=== PATIENT | female | born 1980 | race Caucasian/White ===

== ENCOUNTER 2018-01-14 14:12 | Emergency (ER) | payer SELFPAY ==
--- NOTE | 2018-01-14 15:14 | EDM.PDOC ---
<Carri Lara - Last Filed: 01/14/18 15:06> ED HPI GENERAL MEDICAL PROBLEM - General Chief Complaint: Upper Extremity Injury/Pain Stated Complaint: RIGHT ARM PAIN-SENT BY [facility] Time Seen by Provider: 01/14/18 15:20 - History of Present Illness INITIAL COMMENTS - FREE TEXT/NARRATIVE: Patient is a 37 year old female sent from the clinic today for right arm pain. The pain has been present for about a week and she describes the pain as shooting from her shoulder into the dorsum of her hand with associated numbness and tingling. She rates the arm pain She also complains of a headache that occured suddenly this morning, and she noticed a non-painful lump on the right side of her neck. She became dizzy and lightheaded with the headache onset. She denies previous arm pain episodes or injuries. She denies arm swelling or redness, fever, chills, N/V. She took Aleve about an hour ago for the headache with minor relief. Right Arm Pain Score (Numeric/FACES): 6 - Related Data Allergies Allergy/AdvReac Type Severity Reaction Status Date / Time No Known Allergies Allergy Verified 01/14/18 14:26 Home Meds: Home Meds Prednisone [IJD: predniSONE] 40 mg PO WITHBREAKFAST #10 tab 01/14/18 [Rx] oxyCODONE HCl/Acetaminophen [Percocet 5-325 mg Tablet] 1 each PO Q4HR PRN #12 tablet 01/14/18 [Rx] Social & Family History - Tobacco Use Smoking Status *Q: Never Smoker Second Hand Smoke Exposure: No - Caffeine Use Caffeine Use: Reports: Coffee - Recreational Drug Use Recreational Drug Use: No Review of Systems - Review of Systems Constitutional: Reports: No Symptoms Eyes: Reports: No Symptoms Ears: Reports: No Symptoms Nose: Reports: No Symptoms Mouth/Throat: Reports: No Symptoms Respiratory: Reports: No Symptoms Cardiovascular: Reports: No Symptoms GI/Abdominal: Reports: No Symptoms Genitourinary: Reports: No Symptoms Musculoskeletal: Reports: Neck Pain, Arm Pain, Other (headache) Skin: Reports: No Symptoms Neurological: Reports: No Symptoms, Numbness, Tingling Psychiatric: Reports: No Symptoms ED EXAM, GENERAL - Physical Exam Exam Limited By: No Limitations General Appearance: Alert, No Apparent Distress Ears: Normal External Exam Nose: Normal Inspection Throat/Mouth: Normal Inspection Head: Atraumatic Neck: Supple, Non-Tender, Full Range of Motion Respiratory/Chest: No Respiratory Distress Cardiovascular: Normal Peripheral Pulses, Regular Rate, Rhythm, No Murmur GI/Abdominal: Normal Bowel Sounds, Soft, Non-Tender, No Organomegaly, No Distention Extremities: Normal Inspection, Normal Range of Motion, Normal Capillary Refill , Arm Pain Neurological: Alert, Oriented, No Motor/Sensory Deficits Psychiatric: Normal Affect, Normal Mood Skin Exam: Warm, Dry, Intact, Normal Color, No Rash Lymphatic: No Adenopathy Course - Vital Signs Last Recorded V/S: Last Vital Signs Temp 36.3 C 01/14/18 14:23 Pulse 95 01/14/18 14:23 Resp 18 01/14/18 14:23 BP 141/98 H 01/14/18 14:23 Pulse Ox 100 01/14/18 14:23 - Orders/Labs/Meds Labs: Laboratory Tests 01/14/18 01/14/18 01/14/18 Range/Units 15:56 15:56 15:56 WBC 7.86 (3.98-10.04) K/mm3 RBC 4.79 (3.98-5.22) M/mm3 Hgb 13.5 (11.2-15.7) gm/L Hct 40.8 (34.1-44.9) % MCV 85.2 (79.4-94.8) fl MCH 28.2 (25.6-32.2) pg MCHC 33.1 (32.2-35.5) g/dl RDW Std Deviation 47.0 H (36.4-46.3) fL Plt Count 368 (182-369) K/mm3 MPV 9.8 (9.4-12.3) fl Neut % (Auto) 57.2 (34.0-71.1) % Lymph % (Auto) 30.7 (19.3-51.7) % [place] % (Auto) 10.1 (4.7-12.5) % Eos % (Auto) 1.4 (0.7-5.8) Baso % (Auto) 0.6 (0.1-1.2) % Neut # (Auto) 4.50 (1.56-6.13) K/mm3 Lymph # (Auto) 2.41 (1.18-3.74) K/mm3 [place] # (Auto) 0.79 H (0.24-0.36) K/mm3 Eos # (Auto) 0.11 (0.04-0.36) K/mm3 Baso # (Auto) 0.05 (0.01-0.08) K/mm3 Sodium 141 (136-145) mEq/L Potassium 3.6 (3.5-5.1) mEq/L Chloride 105 (98-107) mEq/L Carbon Dioxide 25 (21-32) mEq/L Anion Gap 14.6 (5-15) BUN 13 (7-18) mg/dL Creatinine 1.0 (0.55-1.02) mg/dL Est Cr Clr Drug Dosing 60.92 mL/min Estimated GFR (MDRD) > 60 (>60) mL/min BUN/Creatinine Ratio 13.0 L (14-18) Glucose 99 (74-106) mg/dL Calcium 9.0 (8.5-10.1) mg/dL Magnesium 2.1 (1.8-2.4) mg/dl Total Bilirubin 0.2 (0.2-1.0) mg/dL AST 14 L (15-37) U/L ALT 18 (14-59) U/L Alkaline Phosphatase 75 (46-116) U/L Creatine Kinase 48 (26-192) U/L Total Protein 7.5 (6.4-8.2) g/dl Albumin 3.9 (3.4-5.0) g/dl Globulin 3.6 gm/dL Albumin/Globulin Ratio 1.1 (1-2) Meds: Medications Discontinued Medications Generic Name Dose Route Start Last Admin Trade Name Freq PRN Reason Stop Dose Admin Acetaminophen 650 mg 01/14/18 15:38 01/14/18 16:10 Tylenol PO 01/14/18 15:39 650 mg NOW ONE Administration Ketorolac Tromethamine 60 mg 01/14/18 17:21 01/14/18 17:27 Toradol IM 01/14/18 17:22 60 mg ONETIME ONE Administration Departure - Departure Disposition: Home, Self-Care 01 Clinical Impression: Cervical radiculopathy - Discharge Information Prescriptions: oxyCODONE HCl/Acetaminophen [Percocet 5-325 mg Tablet] 1 each PO Q4HR PRN #12 tablet PRN Reason: Pain Prednisone [IJD: predniSONE] 40 mg PO WITHBREAKFAST #10 tab Instructions: Cervical Radiculopathy, [id number] Referrals: PCP,Nhung [Primary Care Provider] - Gianna Mas [Physician] - Forms: ED Department Discharge Additional Instructions: Recommend ice and heat for additional pain relief. Also recommend trying something like icy hot or BenGay. may also purchase topical lidocaine patches. These are available [id number]. Prednisone 2 tabs, 40 mg by mouth daily for 5 days. Tylenol or Motrin as needed for pain relief. For pain not relieved by Tylenol or Motrin you may take Percocet 1 tab every 4-[address] machinery within 12 hours of taking Percocet. Percocet can be habit-forming, recommend you take as few of these as needed to control your pain. Do not take more than 3200mg a Motrin or 4 g of Tylenol from all sources in 1 day. Follow-up with family medicine this week for recheck of your symptoms. may need to discuss taking MRI for further evaluation. Recommend Dr. Chu or Dr. Perez at the [facility]. Call [phone] schedule to schedule with one of these providers. Please return to the ER if your symptoms change or worsen. <Anel Taylor - Last Filed: 01/16/18 13:38> ED HPI GENERAL MEDICAL PROBLEM - General Source of Information: Reports: Patient History Limitations: Reports: No Limitations - History of Present Illness INITIAL COMMENTS - FREE TEXT/NARRATIVE: Patient was initially seen by MARKO Alejo. I agree with Her history of present illness. In addition to me she reports that she's not been any trauma recently. No motor vehicle accidents. She recently traveled from [place] to [place]. She reports to me that she has a headache and neck pain mostly on the posterior aspects greatest in the right side. She reports that the pain travels from her neck down into her arm. Reports the greatest pain in her distal upper arm and forearm. Review of Systems - Review of Systems Review Of Systems: See Below ED EXAM, GENERAL - Physical Exam Exam: See Below Exam Limited By: No Limitations General Appearance: Alert, WD/WN, Mild Distress Neck: Normal Inspection, Supple, Non-Tender, Full Range of Motion, Other (No tenderness to palpation of the cervical vertebrae. Minimal tenderness to the trapezius, mainly on the right, and the posterior neck muscle groups. Negative Spurling's test.) Respiratory/Chest: No Respiratory Distress, Lungs Clear, Normal Breath Sounds Cardiovascular: Normal Peripheral Pulses, Regular Rate, Rhythm, No Murmur Peripheral Pulses: 3+: Radial (L), Radial (R) Extremities: Limited Range of Motion (right shoulder due to pain) Course - Radiology Interpretation Free Text/Narrative:: CT cervical spine Technique: Multiple axial sections were obtained from above C1 inferiorly to the bottom of T1. Reconstructed sagittal and coronal images were reviewed. Comparison: No previous study. Findings: Mastoid sinuses and middle ear cavities are clear. Posterior skull base is intact. Vertebral body heights and disc spaces are maintained. No bony central or bony neural foraminal stenosis is seen. No fracture is seen. No abnormal subluxation is noted. Kyphosis is noted on the reconstructed sagittal images which is most likely positional. Impression: 1. Slight kyphosis on the sagittal views most likely representing positioning. 2. No additional abnormality is seen on CT study of the cervical spine. Right upper extremity venous ultrasound: Duplex and color flow imaging was obtained of the right upper extremity including the jugular, subclavian, axillary, brachial, basilic, cephalic, radial and ulnar veins. Normal compression is seen throughout these veins. Phasic flow and augmentation also present within the majority of veins. Left subclavian vein also showed augmentation. Impression: 1. No evidence of venous thrombosis within the right upper extremity or within the left subclavian vein. - Re-Assessments/Exams Free Text/Narrative Re-Assessment/Exam: 01/14/18 15:35 Patient was initially seen by Carri MARION. I agree with her history of present illness, review of systems and exam. Patient initially declined any pain medication. By the time I saw the patient, she decided she would like something for the pain. We'll get her Tylenol for pain. She declined anything stronger than that. Decision made to CT her neck to rule out a cervical radiculopathy. She was educated that this is not the best test for this and she may require an MRI later. 01/14/18 17:[address] and labs with the patient. She does seem like she is experiencing significantly more pain. She still declining narcotic pain medication. Decided that we will get her some Toradol IM. We'll obtain ultrasound to ensure she has not a blood clot and on. 01/14/18 19:47 Reviewed the ultrasound results with the patient. At this point is unclear infected what is causing her pain. I do feel that is very likely a cervical radiculopathy. Will have close follow-up and they can schedule an MRI outpatient. Discharge instructions as documented. Departure - Departure Time of Disposition: 19:42 Condition: Fair
[2018-01-14] MEDS ORDERED: Acetaminophen 325 MG Tab PO ONE (15:38)
--- NOTE | 2018-01-14 15:59 | CT ---
CT cervical spine Technique: Multiple axial sections were obtained from above C1 inferiorly to the bottom of T1. Reconstructed sagittal and coronal images were reviewed. Comparison: No previous study. Findings: Mastoid sinuses and middle ear cavities are clear. Posterior skull base is intact. Vertebral body heights and disc spaces are maintained. No bony central or bony neural foraminal stenosis is seen. No fracture is seen. No abnormal subluxation is noted. Kyphosis is noted on the reconstructed sagittal images which is most likely positional. Impression: 1. Slight kyphosis on the sagittal views most likely representing positioning. 2. No additional abnormality is seen on CT study of the cervical spine. Diagnostic code #2
[2018-01-14] MEDS ORDERED: Ketorolac 60 MG/2 ML SDV IM ONE (17:21)
--- NOTE | 2018-01-14 19:04 | US ---
Right upper extremity venous ultrasound: Duplex and color flow imaging was obtained of the right upper extremity including the jugular, subclavian, axillary, brachial, basilic, cephalic, radial and ulnar veins. Normal compression is seen throughout these veins. Phasic flow and augmentation also present within the majority of veins. Left subclavian vein also showed augmentation. Impression: 1. No evidence of venous thrombosis within the right upper extremity or within the left subclavian vein. Diagnostic code #1
== END 2018-01-14 20:04 | disposition home or self-care (01) ==
LOC: JD.ED 14:12
DX: M54.12 Radiculopathy, cervical region (principal)
CPT/HCPCS: 36415; 72125; 80053; 82550; 83735; 85025; 93971; 96372; 99284; A9270; J1885; 99283

== ENCOUNTER 2018-05-21 22:00 | Emergency (ER) | payer SELFPAY ==
[2018-05-21] MEDS ORDERED: Ondansetron 4 MG/2 ML SDV IVPUSH ONE (22:22)
[2018-05-21] MEDS ORDERED: Sodium Chloride 0.9% 10 ML Syringe FLUSH PRN (22:22)
[2018-05-21] MEDS ORDERED: Sodium Chloride 0.9% 1,000 ML IV STA (22:22)
--- NOTE | 2018-05-21 23:21 | EDM.PDOC ---
ED HPI GENERAL MEDICAL PROBLEM - General Chief Complaint: Abdominal Pain Stated Complaint: ABDOMINAL [PAIN Time Seen by Provider: 05/21/18 22:11 Source of Information: Reports: Patient History Limitations: Reports: No Limitations - History of Present Illness INITIAL COMMENTS - FREE TEXT/NARRATIVE: The patient presents with epigastric and RUQ abdominal pain since this weekend. The pain comes and goes. She also has some nausea and diarrhea at times. She says the pain comes after eating. She has no fever, chills, cough, chest pain, or dysuria. She still has her gallbladder and appendix. She does not think she is . Onset: Gradual Duration: Day(s): Location: Reports: Abdomen Quality: Reports: Sharp Severity: Moderate Improves with: Reports: None Worsens with: Reports: None Associated Symptoms: Reports: Nausea/Vomiting. Denies: Confusion, Chest Pain, Cough, Fever/Chills, Headaches, Shortness of Breath Upper Epigastric Pain Score (Numeric/FACES): 5 - Related Data Allergies Allergy/AdvReac Type Severity Reaction Status Date / Time No Known Allergies Allergy Verified 05/21/18 22:11 Home Meds: Home Meds Nitrofurantoin Monohyd/M-Cryst [Macrobid 100 mg Capsule] 100 mg PO BID #9 capsule 05/21/18 [Rx] Ondansetron [Zofran ODT] 4 mg PO Q6H PRN #20 tab.dis 05/21/18 [Rx] Past Medical History HEENT History: Reports: Impaired Vision Respiratory History: Reports: Other (See Below) Other Respiratory History: fungal pneumonia as a child Oncologic (Cancer) History: Reports: Leukemia Social & Family History - Family History Family Medical History: Noncontributory - Tobacco Use Smoking Status *Q: Never Smoker - Caffeine Use Caffeine Use: Reports: Coffee - Recreational Drug Use Recreational Drug Use: No ED ROS GENERAL - Review of Systems Review Of Systems: See Below Constitutional: Reports: No Symptoms HEENT: Reports: No Symptoms Respiratory: Reports: No Symptoms Cardiovascular: Reports: No Symptoms Endocrine: Reports: No Symptoms GI/Abdominal: Reports: Abdominal Pain, Nausea. Denies: Diarrhea : Reports: No Symptoms Musculoskeletal: Reports: No Symptoms Skin: Reports: No Symptoms ED EXAM, GI/ABD - Physical Exam Exam: See Below Exam Limited By: No Limitations General Appearance: Alert, No Apparent Distress Ears: Normal External Exam Nose: Normal Inspection Head: Atraumatic, Normocephalic Neck: Normal Inspection Respiratory/Chest: No Respiratory Distress, Lungs Clear, Normal Breath Sounds Cardiovascular: Regular Rate, Rhythm, No Edema, No Murmur GI/Abdominal Exam: Soft, No Organomegaly, No Mass, Tender (Mild to moderate pain to the RUQ) Back Exam: Normal Inspection Extremities: Normal Inspection Course - Vital Signs Last Recorded V/S: Last Vital Signs Temp 98.0 F 05/21/18 22:08 Pulse 95 05/21/18 22:08 Resp 20 05/21/18 22:08 BP 122/82 05/21/18 22:08 Pulse Ox 99 05/21/18 22:08 - Orders/Labs/Meds Orders: Active Orders 24 hr Category Date Time Status Peripheral IV Care [RC] . DIRECTED Care 05/21/18 22:22 Active Abdomen Ltd [US] Stat Exams 05/21/18 22:22 Taken UA W/MICROSCOPIC [URIN] Stat Lab 05/21/18 22:40 Ordered Nitrofurantoin [place]/Macrocryst [Macrobid] Med 05/21/18 23:32 Once 100 mg PO ONETIME ONE Sodium Chloride 0.9% [Saline Flush] Med 05/21/18 22:22 Active 10 ml FLUSH ASDIRECTED PRN ED Antiemetic Medication Reflex [OM.PC] Stat Oth 05/21/18 22:22 Ordered Peripheral IV Insertion Adult [OM.PC] Stat Oth 05/21/18 22:22 Ordered Medication Orders Sodium Chloride (Saline Flush) 10 ml FLUSH ASDIRECTED PRN PRN Reason: Keep Vein Open Last Admin: 05/21/18 22:36 Dose: 10 ml Labs: Laboratory Tests 05/21/18 05/21/18 05/21/18 Range/Units 22:30 22:30 22:30 WBC 8.16 (3.98-10.04) K/mm3 RBC 4.74 (3.98-5.22) M/mm3 Hgb 13.1 (11.2-15.7) gm/L Hct 40.4 (34.1-44.9) % MCV 85.2 (79.4-94.8) fl MCH 27.6 (25.6-32.2) pg MCHC 32.4 (32.2-35.5) g/dl RDW Std Deviation 44.7 (36.4-46.3) fL Plt Count 367 (182-369) K/mm3 MPV 9.7 (9.4-12.3) fl Neut % (Auto) 47.3 (34.0-71.1) % Lymph % (Auto) 38.0 (19.3-51.7) % [place] % (Auto) 11.5 (4.7-12.5) % Eos % (Auto) 2.5 (0.7-5.8) Baso % (Auto) 0.6 (0.1-1.2) % Neut # (Auto) 3.86 (1.56-6.13) K/mm3 Lymph # (Auto) 3.10 (1.18-3.74) K/mm3 [place] # (Auto) 0.94 H (0.24-0.36) K/mm3 Eos # (Auto) 0.20 (0.04-0.36) K/mm3 Baso # (Auto) 0.05 (0.01-0.08) K/mm3 Sodium 139 (136-145) mEq/L Potassium 4.0 (3.5-5.1) mEq/L Chloride 105 (98-107) mEq/L Carbon Dioxide 23 (21-32) mEq/L Anion Gap 15.0 (5-15) BUN 14 (7-18) mg/dL Creatinine 0.9 (0.55-1.02) mg/dL Est Cr Clr Drug Dosing 67.03 mL/min Estimated GFR (MDRD) > 60 (>60) mL/min BUN/Creatinine Ratio 15.6 (14-18) Glucose 113 H (74-106) mg/dL Calcium 8.8 (8.5-10.1) mg/dL Total Bilirubin 0.1 L (0.2-1.0) mg/dL AST 15 (15-37) U/L ALT 16 (14-59) U/L Alkaline Phosphatase 92 (46-116) U/L Total Protein 7.4 (6.4-8.2) g/dl Albumin 3.7 (3.4-5.0) g/dl Globulin 3.7 gm/dL Albumin/Globulin Ratio 1.0 (1-2) Lipase 120 (73-393) U/L HCG, Qual Negative (NEGATIVE) Urine Color (Yellow) Urine Appearance (Clear) Urine pH (5.0-8.0) Ur Specific [place] (1.005-1.030) Urine Protein (Negative) Urine Glucose (UA) (Negative) Urine Ketones (Negative) Urine Occult Blood (Negative) Urine Nitrite (Negative) Urine Bilirubin (Negative) Urine Urobilinogen (0.2-1.0) Ur Leukocyte Esterase (Negative) Urine RBC (0-5) /hpf Urine WBC (0-5) /hpf Ur Epithelial Cells (0-5) /hpf Urine Bacteria (FEW) /hpf Urine Mucus (FEW) /hpf 05/21/18 Range/Units 22:40 WBC (3.98-10.04) K/mm3 RBC (3.98-5.22) M/mm3 Hgb (11.2-15.7) gm/L Hct (34.1-44.9) % MCV (79.4-94.8) fl MCH (25.6-32.2) pg MCHC (32.2-35.5) g/dl RDW Std Deviation (36.4-46.3) fL Plt Count (182-369) K/mm3 MPV (9.4-12.3) fl Neut % (Auto) (34.0-71.1) % Lymph % (Auto) (19.3-51.7) % [place] % (Auto) (4.7-12.5) % Eos % (Auto) (0.7-5.8) Baso % (Auto) (0.1-1.2) % Neut # (Auto) (1.56-6.13) K/mm3 Lymph # (Auto) (1.18-3.74) K/mm3 [place] # (Auto) (0.24-0.36) K/mm3 Eos # (Auto) (0.04-0.36) K/mm3 Baso # (Auto) (0.01-0.08) K/mm3 Sodium (136-145) mEq/L Potassium (3.5-5.1) mEq/L Chloride (98-107) mEq/L Carbon Dioxide (21-32) mEq/L Anion Gap (5-15) BUN (7-18) mg/dL Creatinine (0.55-1.02) mg/dL Est Cr Clr Drug Dosing mL/min Estimated GFR (MDRD) (>60) mL/min BUN/Creatinine Ratio (14-18) Glucose (74-106) mg/dL Calcium (8.5-10.1) mg/dL Total Bilirubin (0.2-1.0) mg/dL AST (15-37) U/L ALT (14-59) U/L Alkaline Phosphatase (46-116) U/L Total Protein (6.4-8.2) g/dl Albumin (3.4-5.0) g/dl Globulin gm/dL Albumin/Globulin Ratio (1-2) Lipase (73-393) U/L HCG, Qual (NEGATIVE) Urine Color Yellow (Yellow) Urine Appearance Slt cloudy H (Clear) Urine pH 6.0 (5.0-8.0) Ur Specific [place] > or = 1.030 (1.005-1.030) Urine Protein Negative (Negative) Urine Glucose (UA) Negative (Negative) Urine Ketones Negative (Negative) Urine Occult Blood Negative (Negative) Urine Nitrite Negative (Negative) Urine Bilirubin Negative (Negative) Urine Urobilinogen 0.2 (0.2-1.0) Ur Leukocyte Esterase 1+ H (Negative) Urine RBC 0-5 (0-5) /hpf Urine WBC 10-20 H (0-5) /hpf Ur Epithelial Cells 0-5 (0-5) /hpf Urine Bacteria Few (FEW) /hpf Urine Mucus Not seen (FEW) /hpf Meds: Medications Generic Name Dose Route Start Last Admin Trade Name Freq PRN Reason Stop Dose Admin Sodium Chloride 10 ml 05/21/18 22:22 05/21/18 22:36 Saline Flush FLUSH 10 ml ASDIRECTED PRN Administration Keep Vein Open Discontinued Medications Generic Name Dose Route Start Last Admin Trade Name Freq PRN Reason Stop Dose Admin Sodium Chloride 1,000 mls @ 1,000 mls/hr 05/21/18 22:22 05/21/18 22:34 Normal Saline IV 05/21/18 23:21 1,000 mls/hr .BOLUS STA Administration Ondansetron HCl 4 mg 05/21/18 22:22 05/21/18 22:35 Zofran IVPUSH 05/21/18 22:23 4 mg ONETIME ONE Administration - Re-Assessments/Exams Free Text/Narrative Re-Assessment/Exam: 05/21/18 23:19 I ordered an IV NS 1L bolus, zofran 4mg IV, labs, UA and an US of her RUQ. Her CBC and CMP look good. Her HCG is negative. Her UA shows a UTI. The US shows a contracted gallbladder but no signs of stones or gallbladder wall thickening. I will need to treat her UTI and get her on some pepcid and have her follow up with her doctor for further testing as needed. Departure - Departure Time of Disposition: 23:35 Disposition: Home, Self-Care 01 Condition: Good Clinical Impression: Abdominal pain Qualifiers: Abdominal location: right upper quadrant Qualified Code(s): R10.11 - Right upper quadrant pain UTI (urinary tract infection) Qualifiers: Urinary tract infection type: site unspecified Hematuria presence: without hematuria Qualified Code(s): N39.0 - Urinary tract infection, site not specified - Discharge Information Prescriptions: Nitrofurantoin Monohyd/M-Cryst [Macrobid 100 mg Capsule] 100 mg PO BID #9 capsule Ondansetron [Zofran ODT] 4 mg PO Q6H PRN #20 tab.dis PRN Reason: Nausea\vomiting Referrals: PCP,None [Primary Care Provider] - Deb Chu MD [Physician] - 1 Week Forms: ED Department Discharge Additional Instructions: Take macrobid 2 times per day until gone. Take the zofran every 6 hours as needed for nausea and vomiting. Drink plenty of fluids. Take pepcid daily for 5 days. Avoid fried fatty foods. Follow up with Dr Chu within a week or one of her partners. Please return if you are worse. - My Orders Last 24 Hours: My Active Orders 05/21/18 22:22 Peripheral IV Care [RC] . DIRECTED Abdomen Ltd [US] Stat Sodium Chloride 0.9% [Saline Flush] 10 ml FLUSH ASDIRECTED PRN ED Antiemetic Medication Reflex [OM.PC] Stat Peripheral IV Insertion Adult [OM.PC] Stat 05/21/18 22:40 UA W/MICROSCOPIC [URIN] Stat 05/21/18 23:32 Nitrofurantoin [place]/Macrocryst [Macrobid] 100 mg PO ONETIME ONE - Assessment/Plan Last 24 Hours: My Active Orders 05/21/18 22:22 Peripheral IV Care [RC] . DIRECTED Abdomen Ltd [US] Stat Sodium Chloride 0.9% [Saline Flush] 10 ml FLUSH ASDIRECTED PRN ED Antiemetic Medication Reflex [OM.PC] Stat Peripheral IV Insertion Adult [OM.PC] Stat 05/21/18 22:40 UA W/MICROSCOPIC [URIN] Stat 05/21/18 23:32 Nitrofurantoin [place]/Macrocryst [Macrobid] 100 mg PO ONETIME ONE
[2018-05-21] MEDS ORDERED: Nitrofurantoin Monohydrate/Macrocrystalline 100 MG Cap PO ONE (23:32)
--- NOTE | 2018-05-22 06:23 | US ---
Limited abdominal ultrasound: Multiple real-time images of the upper right abdomen were obtained. Comparison: No prior abdominal imaging. Liver shows no focal parenchymal abnormality. Gallbladder not optimally distended but shows no shadowing gallstones or gallbladder wall thickening. No biliary duct dilatation is seen. Right kidney shows no hydronephrosis or mass. Right kidney has a length of 8.7 cm. Pancreas is incompletely seen. Visualized portions of the pancreas are within normal limits. Portal vein shows normal hepatopedal flow. Impression: 1. No abnormality is identified on right upper quadrant abdominal ultrasound. Diagnostic code #1 Agree with preliminary report issued by [facility] ([facility] preliminary report dictated on 05/13/1918, 12:40 AM Central Time)
== END 2018-05-21 23:50 | disposition home or self-care (01) ==
LOC: JD.ED 22:00
DX: N39.0 Urinary tract infection, site not specified (principal); R10.11 Right upper quadrant pain; Z79.899 Other long term (current) drug therapy
CPT/HCPCS: 36415; 76705; 80053; 81001; 83690; 84703; 85025; 96361; 96374; 99284; A9270; J2405; J7040; J7050

== ENCOUNTER 2020-04-26 17:48 | Emergency (ER) | payer SELFPAY ==
[2020-04-26] MEDS ORDERED: Sodium Chloride 0.9% 10 ML Syringe FLUSH PRN (18:57)
[2020-04-26] MEDS ORDERED: Sodium Chloride 0.9% 1,000 ML IV ONE (18:58)
--- NOTE | 2020-04-26 19:05 | EDM.PDOC ---
ED HPI GENERAL MEDICAL PROBLEM - General Chief Complaint: Neuro Symptoms/Deficits Stated Complaint: COLLAPSED Time Seen by Provider: 04/26/20 18:28 Source of Information: Reports: Patient, RN Notes Reviewed History Limitations: Reports: No Limitations - History of Present Illness INITIAL COMMENTS - FREE TEXT/NARRATIVE: Patient is a 39-year-old female who presents to the ED for evaluation of a couple syncopal episodes at work. Patient states she did go to the [facility] walk -in [facility] and was evaluated, and they thought likely it was vertigo or some sort of inner ear infection, but sent her here due to the possibility of it being a seizure or a stroke. Patient is exhibiting no strokelike symptoms, it is important to note. Patient's vital signs are also within normal limits. Patient states she did not have any loss of consciousness or hit her head. States that she has had previous incidents like this, roughly 8 to 10 years ago , and again 3 years ago. Patient told she had an interim your viral infection at those times, and treated accordingly. Patient states that she does feel dizzy, and does not characterize this is a world spinning dizziness, but states that the provider at the walk-in clinic did Vincent maneuvers, this seemed to worsen the dizziness. Patient also states that any sort of moving her eyes makes the dizziness worse, she states that she has to close her eyes sometimes to get her wits about her. She states regarding the collapse, she is aware of her surroundings, and cannot respond to anyone, and this is concerning to her. Patient states she has some mild nausea with this, no vomiting or any other sick -like symptoms, she has not had any sort of upper respiratory symptoms, and also she denies any chance of at today's visit. Of note patient's blood pressure in the room, at triage is 120/89, 112/86, then 97/79. - Related Data Allergies Allergy/AdvReac Type Severity Reaction Status Date / Time No Known Allergies Allergy Verified 04/26/20 18:08 Home Meds: Home Meds . [No Known Home Meds] 04/26/20 [History] Past Medical History HEENT History: Reports: Impaired Vision, Otitis Media Respiratory History: Reports: Other (See Below) Other Respiratory History: fungal pneumonia as a child Neurological History: Reports: Vertigo Oncologic (Cancer) History: Reports: Leukemia Social & Family History - Family History Family Medical History: Noncontributory - Tobacco Use Smoking Status *Q: Never Smoker Second Hand Smoke Exposure: Yes - Caffeine Use Caffeine Use: Reports: Coffee, Soda - Recreational Drug Use Recreational Drug Use: No ED ROS GENERAL - Review of Systems Review Of Systems: See Below Constitutional: Denies: Fever, Chills HEENT: Reports: Vertigo. Denies: Ear Pain, Sinus Problem, Vision Change Respiratory: Denies: Shortness of Breath, Cough Cardiovascular: Denies: Chest Pain GI/Abdominal: Reports: Nausea. Denies: Abdominal Pain, Constipation, Diarrhea, Vomiting Neurological: Reports: Dizziness, Syncope (episodes at home) ED EXAM, NEURO - Physical Exam Exam: See Below Exam Limited By: No Limitations General Appearance: Alert, WD/WN, No Apparent Distress Eye Exam: Right Eye: Nystagmus (3 tics to upper right EOM), Bilateral Eye: EOMI , Normal Inspection, PERRL Ears: Normal External Exam, Normal Canal, Hearing Grossly Normal, Normal TMs Nose: Normal Inspection Throat/Mouth: Normal Inspection, Normal Lips, Normal Teeth, Normal Gums, Normal Oropharynx, Normal Voice, No Airway Compromise Head Exam: Atraumatic, Normocephalic Neck: Normal Inspection Respiratory/Chest: No Respiratory Distress, Lungs Clear, Normal Breath Sounds, No Accessory Muscle Use, Chest Non-Tender Cardiovascular: Normal Peripheral Pulses, Regular Rate, Rhythm, No Murmur GI/Abdominal: Normal Bowel Sounds, Soft, Non-Tender, No Distention, No Mass Neurological: Alert, Normal Mood/Affect, Normal Dorsiflexion, CN II-XII Intact, Normal Plantar Flexion, Normal Gait, Normal Reflexes, No Motor/Sensory Deficits , Oriented x 3 Back Exam: Normal Inspection Extremities: Normal Inspection, Normal Capillary Refill Psychiatric: Normal Affect, Normal Mood Skin Exam: Warm, Dry, Intact, Normal Color, No Rash Course - Vital Signs Last Recorded V/S: Last Vital Signs Temp 98.6 F 04/26/20 18:03 Pulse 94 04/26/20 18:03 Resp 20 04/26/20 18:03 BP 120/89 04/26/20 18:03 Pulse Ox 100 04/26/20 18:03 - Orders/Labs/Meds Orders: Active Orders 24 hr Category Date Time Status Orthostatic Vital Signs [RC] ASDIRECTED Care 04/26/20 18:58 Ordered Peripheral IV Care [RC] . DIRECTED Care 04/26/20 18:58 Ordered COMPREHENSIVE METABOLIC PN,CMP [CHEM] Stat Lab 04/26/20 18:57 Ordered Sodium Chloride 0.9% [Saline Flush] Med 04/26/20 18:57 Active 10 ml FLUSH ASDIRECTED PRN Peripheral IV Insertion Adult [OM.PC] Stat Oth 04/26/20 18:57 Ordered Medication Orders Sodium Chloride (Saline Flush) 10 ml FLUSH ASDIRECTED PRN PRN Reason: Keep Vein Open Labs: Laboratory Tests 04/26/20 Range/Units 20:20 WBC 8.49 (3.98-10.04) K/mm3 RBC 4.85 (3.98-5.22) M/mm3 Hgb 13.5 (11.2-15.7) gm/dl Hct 41.6 (34.1-44.9) % MCV 85.8 (79.4-94.8) fl MCH 27.8 (25.6-32.2) pg MCHC 32.5 (32.2-35.5) g/dl RDW Std Deviation 46.4 H (36.4-46.3) fL Plt Count 396 H (182-369) K/mm3 MPV 9.6 (9.4-12.3) fl Neut % (Auto) 60.9 (34.0-71.1) % Lymph % (Auto) 27.0 (19.3-51.7) % [place] % (Auto) 10.1 (4.7-12.5) % Eos % (Auto) 1.3 (0.7-5.8) Baso % (Auto) 0.6 (0.1-1.2) % Neut # (Auto) 5.17 (1.56-6.13) K/mm3 Lymph # (Auto) 2.29 (1.18-3.74) K/mm3 [place] # (Auto) 0.86 H (0.24-0.36) K/mm3 Eos # (Auto) 0.11 (0.04-0.36) K/mm3 Baso # (Auto) 0.05 (0.01-0.08) K/mm3 Meds: Medications Generic Name Dose Route Start Last Admin Trade Name Freq PRN Reason Stop Dose Admin Sodium Chloride 10 ml 04/26/20 18:57 Saline Flush FLUSH ASDIRECTED PRN Keep Vein Open Discontinued Medications Generic Name Dose Route Start Last Admin Trade Name Prabhakar PRN Reason Stop Dose Admin Sodium Chloride 1,000 mls @ 999 mls/hr 04/26/20 18:58 04/26/20 19:46 Normal Saline IV 04/26/20 19:58 999 mls/hr ONETIME ONE Administration Meclizine HCl 25 mg 04/26/20 18:58 04/26/20 19:46 Antivert PO 04/26/20 18:59 25 mg ONETIME ONE Administration - Re-Assessments/Exams Free Text/Narrative Re-Assessment/Exam: 04/26/20 19:08 Patient presents to the ED for the evaluation of her collapsing episodes at work , history would suggest that this is vertigo in nature, due to the dizziness recounted by the patient. Patient is requesting that we do head CT to rule out any sort abnormalities, I have ordered this to rule out any sort abnormalities although I suspect it to be negative. Patient will also get baseline labs, IV fluids and meclizine to see if this does not help her dizziness. 04/26/20 19:[address] was done, and is negative for any acute abnormalities. 04/26/20 20:41 Patient was reassessed at bedside, and states she is feeling much better, and her dizziness has subsided substantially. She will likely be discharged home with general recommendations pending normal labs. Departure - Departure Time of Disposition: 20:42 Disposition: Home, Self-Care 01 Condition: Good Clinical Impression: BPPV (benign paroxysmal positional vertigo) Qualifiers: Laterality: unspecified laterality Qualified Code(s): H81.10 - Benign paroxysmal vertigo, unspecified ear - Discharge Information *PRESCRIPTION DRUG MONITORING PROGRAM REVIEWED*: No *COPY OF PRESCRIPTION DRUG MONITORING REPORT IN PATIENT ABISAI: No Instructions: Vertigo, [id number], How to Perform the Ivncent Maneuver Referrals: PCP,None [Primary Care Provider] - Forms: ED Department Discharge Additional Instructions: You were evaluated in the ER today for your recent collapse and syncopal episodes. History and physical examination suggest that you are suffering from benign positional paroxysmal vertigo, you did have a head CT performed, and there was no acute abnormalities noted on the head CT. You were given meclizine for the suspicion of vertigo, and this did seem to help relieve some of your symptoms, you were able to take some oral fluids, and this also seemed to help raise your blood pressure little bit to relieve your symptoms. Laboratory evaluation is within normal limits, there is no abnormalities that would suggest an etiology to your other symptoms. This is most likely due to an inner ear imbalance, as it has been previously. Highly recommend you follow-up with a chiropractor in the area that provides Vincent maneuvers for vertigo treatment. You may take meclizine, 25 mg every 6 hours as needed for feelings of vertigo. This is also commonly marketed as Antivert or Bonine, it is available over-the- counter and found by the Dramamine/Benadryl section in any retail or pharmacy. Please return to the ER at any time if symptoms should change or worsen. Sepsis Event Note - Evaluation Sepsis Screening Result: No Definite Risk - Focused Exam Vital Signs: Vital Signs Temp Pulse Resp BP Pulse Ox 04/26/20 18:03 98.6 F 94 20 120/89 100 Date Exam was Performed: 04/26/20 Time Exam was Performed: 20:42 - My Orders Last 24 Hours: My Active Orders 04/26/20 18:57 COMPREHENSIVE METABOLIC PN,CMP [CHEM] Stat Sodium Chloride 0.9% [Saline Flush] 10 ml FLUSH ASDIRECTED PRN Peripheral IV Insertion Adult [OM.PC] Stat 04/26/20 18:58 Orthostatic Vital Signs [RC] ASDIRECTED Peripheral IV Care [RC] . DIRECTED - Assessment/Plan Last 24 Hours: My Active Orders 04/26/20 18:57 COMPREHENSIVE METABOLIC PN,CMP [CHEM] Stat Sodium Chloride 0.9% [Saline Flush] 10 ml FLUSH ASDIRECTED PRN Peripheral IV Insertion Adult [OM.PC] Stat 04/26/20 18:58 Orthostatic Vital Signs [RC] ASDIRECTED Peripheral IV Care [RC] . DIRECTED
--- NOTE | 2020-04-26 19:32 | CT ---
Head CT Technique: Multiple axial sections through the brain were obtained. Intravenous contrast was not utilized. Comparison: No prior intracranial imaging is available. Findings: Ventricles along with basal cisterns and sulci over the convexities are within normal limits for the patient's age. No abnormal parenchymal densities are seen. No evidence of intracranial hemorrhage. No midline shift or mass-effect is seen. Bone window settings were reviewed. No acute calvarial finding is seen. Visualized paranasal sinuses and mastoid sinuses show nothing acute. Impression: 1. Nothing acute is appreciated on noncontrast head CT exam Diagnostic code #1 This report was dictated in MDT
== END 2020-04-26 21:08 | disposition home or self-care (01) ==
LOC: JD.ED 17:48
DX: H81.10 Benign paroxysmal vertigo, unspecified ear (principal)
CPT/HCPCS: 36415; 70450; 80053; 85025; 96360; 99284; A9270; J7030; 99283

== ENCOUNTER 2020-11-17 11:55 | Emergency (ER) | payer SELFPAY ==
--- NOTE | 2020-11-17 12:37 | EDM.PDOC ---
ED HPI GENERAL MEDICAL PROBLEM - General Chief Complaint: Skin Complaint Stated Complaint: R UNDER ARM SKIN COMPLAINT Time Seen by Provider: 11/17/20 12:10 Source of Information: Reports: Patient, RN Notes Reviewed History Limitations: Reports: No Limitations - History of Present Illness INITIAL COMMENTS - FREE TEXT/NARRATIVE: Patient is a 40 year old female presenting to the ER with c/o a painful, red, and swollen area in her right axilla. She states that a number of months ago, she knicked the area while shaving. Since then she has had a small, raised area. Over the last few days, the area has grown in size, reddened, and became painful. She denies fever or chills, but states that she has felt "queezy" today. She has had no vomiting. Right Axillary Pain Score (Numeric/FACES): 3 - Related Data Allergies Allergy/AdvReac Type Severity Reaction Status Date / Time No Known Allergies Allergy Verified 04/26/20 18:08 Home Meds: Home Meds Doxycycline [Vibramycin] 100 mg PO BID 10 Days #20 tab 11/17/20 [Rx] Past Medical History HEENT History: Reports: Impaired Vision, Otitis Media Respiratory History: Reports: Other (See Below) Other Respiratory History: fungal pneumonia as a child Neurological History: Reports: Vertigo Oncologic (Cancer) History: Reports: Leukemia Social & Family History - Family History Family Medical History: No Pertinent Family History - Tobacco Use Tobacco Use Status *Q: Never Tobacco User Second Hand Smoke Exposure: No - Caffeine Use Caffeine Use: Reports: Coffee - Recreational Drug Use Recreational Drug Use: No ED ROS GENERAL - Review of Systems Review Of Systems: See Below Constitutional: Reports: No Symptoms. Denies: Fever, Chills, Weakness HEENT: Reports: No Symptoms Respiratory: Reports: No Symptoms Cardiovascular: Reports: No Symptoms Endocrine: Reports: No Symptoms GI/Abdominal: Reports: Nausea. Denies: Abdominal Pain, Diarrhea, Vomiting : Reports: No Symptoms Musculoskeletal: Reports: No Symptoms Skin: Reports: Other (painful, reddened area of swelling to right axilla.) Neurological: Reports: No Symptoms Psychiatric: Reports: No Symptoms Hematologic/Lymphatic: Reports: No Symptoms Immunologic: Reports: No Symptoms ED EXAM, SKIN/RASH Exam: See Below General Appearance: Alert, WD/WN, No Apparent Distress Respiratory/Chest: No Respiratory Distress, Lungs Clear, Normal Breath Sounds, No Accessory Muscle Use, Chest Non-Tender Cardiovascular: Normal Peripheral Pulses, Regular Rate, Rhythm, No Edema, No Gallop, No JVD, No Murmur, No Rub GI/Abdominal: Normal Bowel Sounds, Soft, Non-Tender, No Organomegaly, No Distention, No Abnormal Bruit, No Mass Neurological: Alert, Oriented, CN II-XII Intact, Normal Cognition, Normal Gait, Normal Reflexes, No Motor/Sensory Deficits Psychiatric: Normal Affect Skin: Other (1.5 cm raised, firm, reddened area of induration to right axilla.) Lymphatic: No Adenopathy Course - Vital Signs Last Recorded V/S: Last Vital Signs Temp 98.5 F 11/17/20 12:13 Pulse 91 11/17/20 12:13 Resp 16 11/17/20 12:13 BP 132/72 11/17/20 12:13 Pulse Ox 97 11/17/20 12:13 - Orders/Labs/Meds Labs: Laboratory Tests 11/17/20 11/17/20 Range/Units 12:34 12:34 WBC 9.23 (3.98-10.04) K/mm3 RBC 4.82 (3.98-5.22) M/mm3 Hgb 13.5 (11.2-15.7) gm/dl Hct 41.8 (34.1-44.9) % MCV 86.7 (79.4-94.8) fl MCH 28.0 (25.6-32.2) pg MCHC 32.3 (32.2-35.5) g/dl RDW Std Deviation 45.1 (36.4-46.3) fL Plt Count 409 H (182-369) K/mm3 MPV 9.5 (9.4-12.3) fl Neut % (Auto) 71.2 H (34.0-71.1) % Lymph % (Auto) 18.6 L (19.3-51.7) % [place] % (Auto) 9.0 (4.7-12.5) % Eos % (Auto) 0.8 (0.7-5.8) Baso % (Auto) 0.3 (0.1-1.2) % Neut # (Auto) 6.57 H (1.56-6.13) K/mm3 Lymph # (Auto) 1.72 (1.18-3.74) K/mm3 [place] # (Auto) 0.83 H (0.24-0.36) K/mm3 Eos # (Auto) 0.07 (0.04-0.36) K/mm3 Baso # (Auto) 0.03 (0.01-0.08) K/mm3 Sodium 139 (136-145) mEq/L Potassium 4.5 (3.5-5.1) mEq/L Chloride 105 (98-107) mEq/L Carbon Dioxide 25 (21-32) mEq/L Anion Gap 13.5 (5-15) BUN 12 (7-18) mg/dL Creatinine 1.0 (0.55-1.02) mg/dL Est Cr Clr Drug Dosing 59.15 mL/min Estimated GFR (MDRD) > 60 (>60) mL/min BUN/Creatinine Ratio 12.0 L (14-18) Glucose 94 (74-106) mg/dL Calcium 8.9 (8.5-10.1) mg/dL Total Bilirubin 0.4 (0.2-1.0) mg/dL AST 16 (15-37) U/L ALT 16 (14-59) U/L Alkaline Phosphatase 79 (46-116) U/L C-Reactive Protein 1.4 H* (<1.0) mg/dL Total Protein 7.5 (6.4-8.2) g/dl Albumin 3.7 (3.4-5.0) g/dl Globulin 3.8 gm/dL Albumin/Globulin Ratio 1.0 (1-2) Meds: Medications Discontinued Medications Generic Name Dose Route Start Last Admin Trade Name Freq PRN Reason Stop Dose Admin Ceftriaxone Sodium 1 gm/ 0 gm 11/17/20 13:36 Lidocaine HCl 2.1 ml IM 11/17/20 13:37 ONETIME ONE - Re-Assessments/Exams Free Text/Narrative Re-Assessment/Exam: Patient is a 40-year-old female presenting with to the emergency part with complaints of a red, swollen, painful area in her right axilla. On exam, there is a 1.5 cm firm nodule which is reddened and tender. Area is not fluctuant and is quite small, so I&D would not be beneficial at this point. Have ordered CBC, CMP, CRP. 12/25/20 13:35 Hematology was grossly unremarkable with the exception of the CRP minimally elevated at 1.4. We will give the patient an IM injection of Rocephin 1 g and sent a prescription for doxycycline. Discussed return precautions discharge instructions as documented. Departure - Departure Time of Disposition: 13:44 Disposition: Home, Self-Care 01 Condition: Good Clinical Impression: Axillary abscess - Discharge Information *PRESCRIPTION DRUG MONITORING PROGRAM REVIEWED*: No *COPY OF PRESCRIPTION DRUG MONITORING REPORT IN PATIENT ABISAI: No Prescriptions: Doxycycline [Vibramycin] 100 mg PO BID 10 Days #20 tab Instructions: Skin Abscess Referrals: PCP,None [Primary Care Provider] - Forms: ED Department Discharge Additional Instructions: You were seen in the emergency department today for an area of redness, pain, and swelling to your right axilla. Blood work was done and found to be normal. As we discussed, this is likely the early stages of an abscess within your axilla. While in the ER, you received an injection of Rocephin which is an an tibiotic. A prescription for doxycycline has been sent to [facility]. Take this medication as prescribed. If you should experience any new or worsening symptoms or develop fever chills, recommend return to the emergency department. Sepsis Event Note (ED) - Evaluation Sepsis Screening Result: No Definite Risk - Focused Exam Vital Signs: Vital Signs Temp Pulse Resp BP Pulse Ox 11/17/20 12:13 98.5 F 91 16 132/72 97
[2020-11-17] MEDS ORDERED: cefTRIAXone 1 GM, Lidocaine 1% 2.1 ML IM ONE ×2 (13:36)
== END 2020-11-17 14:00 | disposition home or self-care (01) ==
LOC: JD.ED 11:55
DX: L02.411 Cutaneous abscess of right axilla (principal)
CPT/HCPCS: 36415; 80053; 85025; 86140; 96372; 99283; J0696; J2001

== ENCOUNTER 2022-12-25 15:37 | Day surgery (SDC) | payer BC ==
[2022-12-25] MEDS ORDERED: Iopamidol 612 MG/ML 100 ML Bottle IVPUSH ONE (17:16)
[2022-12-25] MEDS ORDERED: Piperacillin/Tazobactam 4.5 GM in Sodium Chloride 0.9% 100 ML IV ONE (19:06)
[2022-12-25] MEDS ORDERED: fentaNYL 100 MCG/2 ML SDV ONE (19:42)
[2022-12-25] MEDS ORDERED: Ondansetron 4 MG/2 ML SDV ONE (19:42)
[2022-12-25] MEDS ORDERED: Ketorolac 30 MG/ML SDV ONE (19:42)
[2022-12-25] MEDS ORDERED: Rocuronium 50 MG/5 ML Vial ONE (19:42)
[2022-12-25] MEDS ORDERED: Lidocaine 1% 2 ML ONE (19:42)
[2022-12-25] MEDS ORDERED: Propofol 200 MG/20 ML SDV ONE (19:43)
[2022-12-25] MEDS ORDERED: Bupivacaine 0.5%/EPINEPHrine 1:200,000 50 ML MDV ONE (19:43)
[2022-12-25] MEDS ORDERED: Lidocaine 1% 50 ML MDV ONE (19:43)
[2022-12-25] MEDS ORDERED: fentaNYL 100 MCG/2 ML SDV IVPUSH PRN (19:55)
[2022-12-25] MEDS ORDERED: Ondansetron 4 MG/2 ML SDV IVPUSH PRN (19:55)
[2022-12-25] MEDS ORDERED: HYDROmorphone 0.5 MG/0.5 ML Syringe IVPUSH PRN (19:55)
[2022-12-25] MEDS ORDERED: Sugammadex Sodium 200 MG/2 ML VIAL ONE (20:48)
== END 2022-12-25 22:50 | disposition home or self-care (01) ==
LOC: JD.ED 15:37 → JD.SDS 19:39
PROVIDERS: ATTEND Surgery
DX: K35.80 Unspecified acute appendicitis (principal); D25.9 Leiomyoma of uterus, unspecified; N39.0 Urinary tract infection, site not specified; Z79.899 Other long term (current) drug therapy
CPT/HCPCS: 36415; 44970; 74160; 80053; 81001; 84703; 85025; 86140; 96374; 99285; J1885; J2001; J2704; J3010; J3490; Q9967; J2405